=== PATIENT | female | born 1990 | race Caucasian/White ===

== ENCOUNTER → 2018-10-28 | Outpatient (CLI) | payer BC ==
[~2018-10-28] MED LIST: LEVO75TA4 PO; MICR1TAB18 PO; OMEP20CA3 PO
--- NOTE | 2018-10-28 13:46 | REP ---
RIGHT WRIST, FOUR VIEWS: HISTORY: Pain. There is no acute fracture or dislocation. The joint spaces are normal in appearance. IMPRESSION: There is no acute fracture or dislocation. Electronically Signed by Ousmane Ritter MD 10/28/2018 01:49 P
== END ==
LOC: M WUC 12:53
PROVIDERS: ATTEND Physician Assistant
DX: N39.0 Urinary tract infection, site not specified (principal); M25.531 Pain in right wrist

== ENCOUNTER → 2019-03-17 | Outpatient (CLI) | payer BC ==
[~2019-03-17] MED LIST changes: +METHACHOLINE KIT (J7674) INH ONE
--- NOTE | 2019-03-17 14:22 | PFTRPT ---
Height: 63.00 Inches Weight: 180.00 Lbs BSA: 1.85 Diagnosis: SOB DATE OF PROCEDURE: 03/17/2019 ORDERED BY: Dayana Palmer DO INTERPRETATION: Study of excellent technical quality. Under protocol, methacholine was administered. Even after a total dose of 25 mg or 188.875 CDUs, no provocation dose ever achieved. IMPRESSION: Negative methacholine challenge study. MTDD
== END ==
LOC: M CARPUL 13:30
PROVIDERS: ATTEND Internal Medicine
DX: R06.02 Shortness of breath (principal)
CPT/HCPCS: 94070; J7674

== ENCOUNTER → 2019-03-26 | Outpatient (REF) | payer BC ==
[~2019-03-26] MED LIST changes: -METHACHOLINE KIT (J7674) INH ONE
== END ==
LOC: M LAB REF 16:49
PROVIDERS: ATTEND Internal Medicine
DX: R19.7 Diarrhea, unspecified (principal)

== ENCOUNTER → 2019-09-17 | Outpatient (REF) | payer BC ==
[~2019-09-17] MED LIST changes: -OMEP20CA3 PO; +OMEP20CA4 PO
[2019-09-17 21:54] LABS: VITAMIN B12 LEVEL 330 PG/ML (247-911)
== END ==
LOC: M LAB REF 16:34
PROVIDERS: ATTEND Internal Medicine
DX: M21.372 Foot drop, left foot (principal)

== ENCOUNTER → 2021-02-02 | Outpatient (REF) | payer BC ==
[~2021-02-02] MED LIST changes: +OMEP1CAP73 PO; -OMEP20CA4 PO
== END ==
LOC: M LAB REF 15:52
PROVIDERS: ATTEND Physician Assistant
DX: R30.0 Dysuria (principal)

== ENCOUNTER → 2021-11-06 | Outpatient (CLI) | payer BC ==
[2021-11-06 13:21] LABS: BASO % 0.4 % (0.0-1.0); EOS # 0.2 10^3/uL (0.0-0.5); EOS % 1.7 % (0.0-3.0); HEMATOCRIT 38.9 % (36.0-47.0); HEMOGLOBIN 13.2 g/dl (12.0-15.5); LYMPH # 2.1 10^3/uL (1.5-5.0); LYMPH % 19.1 % (24.0-44.0); MEAN CORPUSCULAR HEMOGLOBIN 29.7 pg (27.0-33.0); MEAN CORPUSCULAR HGB CONC 33.9 g/dl (32.0-36.5); MEAN CORPUSCULAR VOLUME 87.6 fl (80.0-96.0); MONO # 0.6 10^3/uL (0.0-0.8); MONO % 5.4 % (2.0-8.0); NEUTROPHILS % 73.1 % (36.0-66.0); PLATELET COUNT, AUTOMATED 324 10^3/uL (150-450); RED BLOOD COUNT 4.44 10^6/uL (4.00-5.40); WHITE BLOOD COUNT 10.9 10^3/uL (4.0-10.0)
[2021-11-06 13:54] LABS: HEMOGLOBIN A1c 4.9 %
[2021-11-06 14:06] LABS: FREE T4 1.06 NG/DL (0.76-1.46)
[2021-11-06 14:39] LABS: HEPATITIS C VIRUS ABY INDEX < 0.0 INDEX (<0.8); HIV 1&2 SCREEN CENTAUR NEGATIVE (NEGATIVE)
[2021-11-06 15:26] LABS: GC DNA AMPLIFICATION NEGATIVE (NEGATIVE)
== END ==
LOC: M PLALAB 11:04
PROVIDERS: ATTEND Advanced Practice Midwife
DX: Z36.9 Encounter for antenatal screening, unspecified (principal); Z31.5 Encounter for procreative genetic counseling; Z3A.10 10 weeks gestation of pregnancy

== ENCOUNTER → 2021-11-16 | Outpatient (CLI) | payer BC ==
[2021-11-16 15:49] LABS: FREE T4 1.16 NG/DL (0.76-1.46); THYROID STIMULATING HORMONE 1.49 uIU/ML (0.358-3.740)
[2021-11-16 15:55] LABS: HEMOGLOBIN A1c 4.6 %
== END ==
LOC: M PLALAB 12:34
PROVIDERS: ATTEND Advanced Practice Midwife
DX: Z34.91 Encounter for supervision of normal pregnancy, unspecified, first trimester (principal); Z3A.10 10 weeks gestation of pregnancy

== ENCOUNTER → 2022-01-11 | Outpatient (CLI) | payer BC | LOC: M WHC 15:02 | PROVIDERS: ATTEND Specialist | DX: Z34.90 Encounter for supervision of normal pregnancy, unspecified, unspecified trimester (principal) ==

== ENCOUNTER → 2022-01-30 | Outpatient (CLI) | payer BC | LOC: M WHC 15:17 | PROVIDERS: ATTEND Obstetrics & Gynecology | DX: Z36.2 Encounter for other antenatal screening follow-up (principal) ==

== ENCOUNTER → 2022-02-26 | Outpatient (CLI) | payer BC | LOC: M WHC 14:20 | PROVIDERS: ATTEND Specialist | DX: Z34.92 Encounter for supervision of normal pregnancy, unspecified, second trimester (principal); Z3A.26 26 weeks gestation of pregnancy ==

== ENCOUNTER → 2022-04-02 | Outpatient (CLI) | payer BC ==
[~2022-04-02] MED LIST changes: -MICR1TAB18 PO; +NORE1TAB94 PO
[2022-04-02 17:49] LABS: HEMATOCRIT 37.4 % (36.0-47.0); HEMOGLOBIN 12.6 g/dl (12.0-15.5); MEAN CORPUSCULAR HGB CONC 33.7 g/dl (32.0-36.5); MEAN CORPUSCULAR VOLUME 86.2 fl (80.0-96.0); PLATELET COUNT, AUTOMATED 307 10^3/uL (150-450); RED BLOOD COUNT 4.34 10^6/uL (4.00-5.40); WHITE BLOOD COUNT 13.8 10^3/uL (4.0-10.0)
[2022-04-02 18:53] LABS: GC DNA AMPLIFICATION NEGATIVE (NEGATIVE)
== END ==
LOC: M PLALAB 14:17
PROVIDERS: ATTEND Specialist
DX: Z36.9 Encounter for antenatal screening, unspecified (principal); Z3A.25 25 weeks gestation of pregnancy

== ENCOUNTER → 2022-05-01 | Outpatient (CLI) | payer BC ==
[2022-05-01 18:17] LABS: FREE T4 1.03 NG/DL (0.76-1.46); THYROID STIMULATING HORMONE 1.6 uIU/ML (0.358-3.740)
== END ==
LOC: M PLALAB 14:29
PROVIDERS: ATTEND Advanced Practice Midwife
DX: Z36.85 Encounter for antenatal screening for Streptococcus B (principal); O99.283 Endocrine, nutritional and metabolic diseases complicating pregnancy, third trimester; Z3A.35 35 weeks gestation of pregnancy

== ENCOUNTER 2022-06-02 07:44 | Inpatient (IN) | payer BC ==
[2022-06-02] VITALS (31 sets, daily range): BP systolic 121–168; BP diastolic 61–110
[~2022-06-02] VITALS: Ht 160 cm; Wt 96.1 kg
[2022-06-02] MEDS ORDERED: HOME MED LIST COMPLETE! XX SCH (08:10)
[2022-06-02] MEDS ORDERED: LACTATED RINGER'S 1000 ML IV STA (10:43)
[2022-06-02] MEDS ORDERED: OXYTOCIN DRIP 30 UNITS in IV 1 EA IV SCH ×2 (10:45→19:50)
[2022-06-02] MEDS ORDERED: METHYLERGONOVINE MALEATE 0.2 MG/ML VIAL (J2210) IM PRN (10:45)
[2022-06-02] MEDS ORDERED: CARBOPROST TROMETHAMINE 250 MCG/ML AMP IM PRN (10:45)
[2022-06-02] MEDS ORDERED: TRANEXAMIC ACID INJection 1,000 MG in NS 100 ML IV PRN (10:45)
[2022-06-02] MEDS ORDERED: OXYTOCIN DRIP 30 UNITS in IV 1 EA IV PRN (10:45)
[2022-06-02] MEDS ORDERED: LIDOCAINE 1% MDV 20ML VIAL INFIL PRN (10:45)
[2022-06-02 11:32] LABS: HEMOGLOBIN 13.9 g/dl (12.0-15.5); MEAN CORPUSCULAR HGB CONC 34.8 g/dl (32.0-36.5); MEAN CORPUSCULAR VOLUME 83.3 fl (80.0-96.0); PLATELET COUNT, AUTOMATED 220 10^3/uL (150-450); WHITE BLOOD COUNT 16.1 10^3/uL (4.0-10.0)
[2022-06-02] MEDS: LR 1,000 ML IV SCH ×3 (13:11→23:33)
[2022-06-02] MEDS ORDERED: FENTANYL 2MCG/ML ROPIVACAINE 0.2% IN 0.9% NACL 100ML IVBAG As Ordered ONE (14:23)
[2022-06-02] MEDS ORDERED: diphenhydrAMINE 50MG/ML VIAL (J1200) IV PRN ×2 (16:05→18:50)
[2022-06-02] MEDS ORDERED: ePHEDrine SULFATE 25 MG/5 ML(5MG/ML) SYRINGE IVP PRN (16:05)
[2022-06-02] MEDS ORDERED: NALOXONE INJ 0.4MG/1ML VIAL (J2310 PER 1MG) IV PRN ×3 (16:05→18:50)
[2022-06-02] MEDS ORDERED: EPIDURAL/PCA KEYS XX PRN (16:05)
[2022-06-02] MEDS ORDERED: FENTANYL/ROPIVACAINE/NACL BAG 100 ML EPIDURAL SCH (16:05)
[2022-06-02] MEDS ORDERED: ONDANSETRON 4MG 2ML VIAL IV PRN ×3 (16:05→19:50)
[2022-06-02] MEDS ORDERED: LR 500 ML IV PRN (16:05)
[2022-06-02] MEDS ORDERED: AZITHROMYCIN INJ 500 MG, VIAL MATE ADAPTER 1 EACH in NS 250 ML IV ONE (18:00)
[2022-06-02] MEDS ORDERED: BICITRA 30ML SOLN UDC PO ONE (18:00)
[2022-06-02] MEDS ORDERED: BICITRA 30ML SOLN UDC As Ordered ONE (18:03)
[2022-06-02] MEDS ORDERED: AZITHROMYCIN INJ 500MG VIAL As Ordered ONE (18:03)
[2022-06-02] MEDS ORDERED: ceFAZolin 2 GM/D5W 50 ML IV BAG (J0690 PER 500MG) As Ordered ONE (18:03)
[2022-06-02] MEDS ORDERED: MORPHINE PRES-FREE INJ 10 MG/10 ML VIAL As Ordered ONE (18:04)
[2022-06-02] MEDS ORDERED: OXYTOCIN INJ 10 UNITS/ML VIAL (J2590) As Ordered ONE (18:05)
[2022-06-02] MEDS ORDERED: ACETAMINOPHEN 1000MG 100ML IV BTL (OFIRMEV) (J0131 PER 10MG) As Ordered ONE (18:09)
[2022-06-02] MEDS ORDERED: LIDOCAINE 2% W/EPINEPHRINE 20ML VIAL **PRES FREE As Ordered ONE (18:09)
[2022-06-02] MEDS ORDERED: KETOROLAC 60MG 2ML VIAL As Ordered ONE (18:34)
[2022-06-02] MEDS ORDERED: ONDANSETRON 4MG 2ML VIAL As Ordered ONE (18:34)
[2022-06-02] MEDS ORDERED: fentaNYL 100 MCG/2 ML INJECTION IV PRN (18:50)
[2022-06-02] MEDS ORDERED: HYDROMORPHONE HCL 0.5 MG/ 0.5 ML SYRINGE (J1170 PER 1) IV PRN (18:50)
[2022-06-02] MEDS: SLF 3 ML SYR IV SCH (18:50)
[2022-06-02] MEDS ORDERED: METOCLOPRAMIDE INJ 10MG/2ML VIAL (J2765 PER 1) IV PRN (18:50)
[2022-06-02] MEDS ORDERED: **NOTE PATIENT COMMENT** MISC XX SCH (18:50)
[2022-06-02] MEDS ORDERED: oxyCODONE 5MG TAB PO PRN (18:50)
[2022-06-02] MEDS ORDERED: MEPERIDINE INJ 25 MG/ML VIAL (J2175) IV PRN (18:50)
[2022-06-02] MEDS ORDERED: ceFAZolin SOD 2 GM in IV 1 EA IV ONE (19:00)
[2022-06-02 19:07] LABS: CORD GAS ABE A -6.7; CORD GAS ABE V -7.8; CORD GAS HCO3 A 21.8 MEQ/L; CORD GAS HCO3 V 18.5 MEQ/L; CORD GAS O2 SAT A 26.3 %; CORD GAS O2 SAT V 72.8 %; CORD GAS PCO2 A 54.2 mmHg; CORD GAS PCO2 V 40.7 mmHg; CORD GAS PH A 7.222 UNITS; CORD GAS PH V 7.275 UNITS; CORD GAS PO2 A 15.2 mmHg; CORD GAS SBC A 17.3 MEQ/L; CORD GAS SBC V 17.7 MEQ/L; CORD GAS TCO2 A 23.4 MEQ/L; CORD GAS TCO2 V 19.7 MEQ/L
[2022-06-02] MEDS ORDERED: OXYTOCIN 30 UNITS IN 0.9% NaCl 500ML IV BAG (J2590) As Ordered ONE (19:09)
[2022-06-02] MEDS ORDERED: MORPHINE 2 MG/ML 1ML VIAL IV PRN (19:50)
[2022-06-02] MEDS ORDERED: PERCOCET 5MG/325MG TAB PO PRN (19:50)
[2022-06-02] MEDS ORDERED: ACETAMINOPHEN 500 MG TAB PO PRN (19:50)
[2022-06-02] MEDS ORDERED: SIMETHICONE 80MG CHEW TAB PO PRN (19:50)
[2022-06-02] MEDS ORDERED: RHOGAM 300 MCG (1500 IU) INJ (J2790) IM SCH (19:50)
[2022-06-02] MEDS ORDERED: COLA100C5 PO (20:05)
[2022-06-02] MEDS ORDERED: IBUP80TA PO (20:05)
[2022-06-02] MEDS ORDERED: PERCOCET PO (20:05)
[2022-06-02] MEDS: OMEPRAZOLE 20MG CAP PO SCH (21:00)
[2022-06-02] MEDS: DOCUSATE SODIUM 100MG CAPSULE PO SCH (21:00)
[2022-06-02] MEDS: CitaloPRAM (CeleXA) 20 MG TAB PO SCH (21:00)
[2022-06-03] MEDS: KETOROLAC 30 MG/ML 1ML VIAL IV SCH ×3 (01:11→12:40)
[2022-06-03] MEDS: SLF 3 ML SYR IV SCH ×2 (02:16→12:00)
[2022-06-03] MEDS ORDERED: LR 1,000 ML IV ONE (02:50)
[2022-06-03 06:00] VITALS: BP 124/66
[2022-06-03] MEDS: LEVOTHYROXINE 100MCG TABLET (0.1MG) PO SCH (06:23)
[2022-06-03] MEDS: LR 1,000 ML IV SCH (07:00)
[2022-06-03 07:07] LABS: HEMATOCRIT 33.1 % (36.0-47.0); MEAN CORPUSCULAR HEMOGLOBIN 29.4 pg (27.0-33.0); MEAN CORPUSCULAR HGB CONC 34.1 g/dl (32.0-36.5); PLATELET COUNT, AUTOMATED 167 10^3/uL (150-450); RED BLOOD COUNT 3.85 10^6/uL (4.00-5.40); WHITE BLOOD COUNT 15.9 10^3/uL (4.0-10.0)
[2022-06-03 07:24] LABS: HEMOGLOBIN 11.3 g/dl (12.0-15.5)
[2022-06-03] MEDS: DOCUSATE SODIUM 100MG CAPSULE PO SCH ×2 (09:43→20:19)
[2022-06-03] MEDS: PRENATAL VITAMINS CHEWABLE TABLET PO SCH (09:44)
[2022-06-03 10:00] VITALS: BP 120/68
[2022-06-03 14:00] VITALS: BP 127/74
[2022-06-03 18:00] VITALS: BP 134/69
[2022-06-03] MEDS: IBUPROFEN 800 MG TAB PO SCH (20:18)
[2022-06-03] MEDS: OMEPRAZOLE 20MG CAP PO SCH (20:19)
[2022-06-03] MEDS: CitaloPRAM (CeleXA) 20 MG TAB PO SCH (20:19)
[2022-06-03] MEDS ORDERED: MORPHINE 4 MG/ML 1ML VIAL/SYRINGE IV PRN (20:35)
[2022-06-03 22:00] VITALS: BP 123/63
[2022-06-04] MEDS: PERCOCET 5MG/325MG TAB PO PRN ×2 (01:43→08:23)
[2022-06-04 02:00] VITALS: BP 117/58
[2022-06-04] MEDS: LEVOTHYROXINE 100MCG TABLET (0.1MG) PO SCH (05:08)
[2022-06-04] MEDS: IBUPROFEN 800 MG TAB PO SCH ×2 (05:08→12:37)
[2022-06-04 06:03] VITALS: BP 109/57
[2022-06-04] MEDS: DOCUSATE SODIUM 100MG CAPSULE PO SCH (08:23)
[2022-06-04] MEDS: PRENATAL VITAMINS CHEWABLE TABLET PO SCH (08:23)
[2022-06-04] MEDS ORDERED: MEASLES,MUMPS,RUBELLA VACCINE INJ (MMR-II) (90707) SC.IMMUN ONE (09:00)
[2022-06-04 10:00] VITALS: BP 134/77
== END 2022-06-04 13:30 | disposition home or self-care (01) | DRG 540 ==
LOC: M LDO 07:44 → M LDI 10:35 → M OBS 21:24
PROVIDERS: ADMIT Obstetrics & Gynecology; ATTEND Obstetrics & Gynecology
PROC: 10D00Z1 Extraction of Products of Conception, Low, Open Approach (ICD-10-PCS; principal; 2022-06-02 18:16)
DX: O48.0 Post-term pregnancy (principal); Z37.0 Single live birth; Z3A.40 40 weeks gestation of pregnancy; E03.9 Hypothyroidism, unspecified; O99.284 Endocrine, nutritional and metabolic diseases complicating childbirth; Z79.899 Other long term (current) drug therapy; O76 Abnormality in fetal heart rate and rhythm complicating labor and delivery; O32.4XX0 Maternal care for high head at term, not applicable or unspecified

== ENCOUNTER → 2022-08-09 | Outpatient (REF) | payer BC ==
[~2022-08-09] MED LIST changes: +COLA100C5 PO; +IBUP80TA PO; +PERCOCET PO
== END ==
LOC: M LAB REF 16:26
PROVIDERS: ATTEND Student in an Organized Health Care Education/Training Program
DX: R30.0 Dysuria (principal)

== ENCOUNTER → 2023-01-26 | Outpatient (REF) | payer BC | LOC: M LAB REF 19:18 | PROVIDERS: ATTEND Physician Assistant | DX: R30.0 Dysuria (principal) ==

== ENCOUNTER → 2023-05-09 | Outpatient (REF) | payer BC ==
[2023-05-09 17:33] LABS: THYROID PEROXIDASE ANTIBODY > 1300.0 U/ML (<60.0)
[2023-05-11 08:08] LABS: LDL DIRECT 154 mg/dL (0-99)
== END ==
LOC: M LAB REF 16:21
PROVIDERS: ATTEND Internal Medicine
DX: E03.9 Hypothyroidism, unspecified (principal); E78.5 Hyperlipidemia, unspecified

== ENCOUNTER → 2023-10-09 | Outpatient (REF) | payer BC | LOC: M LAB REF 16:25 | PROVIDERS: ATTEND Internal Medicine | DX: N39.0 Urinary tract infection, site not specified (principal) ==

== ENCOUNTER → 2023-11-28 | Outpatient (CLI) | payer BC ==
[2023-11-28 12:51] LABS: BASO # 0.1 10^3/uL (0.0-0.2); BASO % 0.7 % (0.0-1.0); EOS # 0.2 10^3/uL (0.0-0.5); EOS % 2.3 % (0.0-3.0); HEMATOCRIT 40.7 % (36.0-47.0); HEMOGLOBIN 13.5 g/dl (12.0-15.5); LYMPH # 2.6 10^3/uL (1.5-5.0); LYMPH % 29.3 % (24.0-44.0); MEAN CORPUSCULAR HEMOGLOBIN 29.3 pg (27.0-33.0); MEAN CORPUSCULAR HGB CONC 33.2 g/dl (32.0-36.5); MEAN CORPUSCULAR VOLUME 88.3 fl (80.0-96.0); MONO # 0.5 10^3/uL (0.0-0.8); MONO % 5.9 % (2.0-8.0); NEUTROPHILS # 5.5 10^3/uL (1.5-8.5); NEUTROPHILS % 60.9 % (36.0-66.0); PLATELET COUNT, AUTOMATED 326 10^3/uL (150-450); RED BLOOD COUNT 4.61 10^6/uL (4.00-5.40)
[2023-11-28 13:27] LABS: ALBUMIN 3.7 G/DL (3.2-5.2); ALKALINE PHOSPHATASE 74 U/L (46-116); ALT/SGPT 20 U/L (7.0-40); AST/SGOT 16 U/L (<34); BILIRUBIN,DIRECT < 0.1 MG/DL (<0.4); BILIRUBIN,TOTAL 0.3 MG/DL (0.3-1.2); BLOOD UREA NITROGEN 12 MG/DL (9-23); CALCIUM LEVEL 8.7 MG/DL (8.5-10.1); CARBON DIOXIDE LEVEL 25 MMOL/L (20-31); CHLORIDE LEVEL 103 MMOL/L (98-107); CHOLESTEROL LEVEL 225 MG/DL (<200); CREATININE FOR GFR 0.62 MG/DL (0.55-1.30); GLOMERULAR FILTRATION RATE > 60.0 (>60); GLUCOSE, FASTING 85 MG/DL (60-100); HDL CHOLESTEROL 47.8 MG/DL (>40); LDL CHOLESTEROL 127.4 MG/DL (<100); NON-HDL-C 177.2 MG/DL; PHOSPHORUS LEVEL 2.7 MG/DL (2.5-4.9); POTASSIUM SERUM 4.4 MMOL/L (3.5-5.1); SODIUM LEVEL 135 MMOL/L (136-145); TOTAL PROTEIN 7.4 G/DL (5.7-8.2); TRIGLYCERIDES LEVEL 249 MG/DL (<150)
[2023-11-28 13:29] LABS: THYROID STIMULATING HORMONE 3.422 uIU/ML (0.55-4.78)
== END ==
LOC: M WUC 08:58
PROVIDERS: ATTEND Nurse Practitioner Family
DX: E66.8 Other obesity (principal)

== ENCOUNTER → 2025-03-12 | Outpatient (REF) | payer OTHER | LOC: M LAB REF 17:25 | PROVIDERS: ATTEND Student in an Organized Health Care Education/Training Program | DX: R30.0 Dysuria (principal) ==